=== PATIENT | male | born 1990 | race Caucasian/White ===

== ENCOUNTER 2017-01-01 13:33 | Emergency (ER) | payer SELFPAY, OTHER | END 2017-01-01 14:00 | disposition home or self-care (01) | LOC: ER 13:33 | DX: J20.9 Acute bronchitis, unspecified (principal); R20.0 Anesthesia of skin; R05 Cough; I10 Essential (primary) hypertension; Z79.899 Other long term (current) drug therapy | CPT/HCPCS: 99282 ==